=== PATIENT | female | born 1980 | race Caucasian/White ===

== ENCOUNTER 2025-04-21 12:15 | Outpatient (REF) | payer BC, SELFPAY ==
--- NOTE | ~2025-04-21 | XR_ITS ---
EXAMINATION: XR THORACIC SPINE CLINICAL INFORMATION: Z98.890 - Other specified postprocedural states COMPARISON: None available. TECHNIQUE: 2 views of the thoracic spine were obtained. FINDINGS: Bilateral Keyes rods are present extending between T3 and L2. There is mild convex right curvature of the thoracic spine. No other abnormalities are evident. XR/XR thoracic spine 3V IMPRESSION: Unremarkable aside from surgical hardware. Electronically signed by: Luigi Domínguez MD 04/21/2025 01:10 PM EDT
--- NOTE | ~2025-04-21 | XR_ITS ---
EXAMINATION: XR SHOULDER 2 OR MORE VIEWS LEFT HISTORY: M25.512 - Pain in left shoulder COMPARISON: There are no prior studies available for comparison. FINDINGS: Four views of the left shoulder are submitted. Osseous mineralization is normal. There is no fracture or dislocation. The glenohumeral joint is maintained. There is mild narrowing of the AC joint. Spinal stabilization rods are noted in place. The soft tissues are unremarkable. XR/XR shoulder LT min 2V IMPRESSION: Mild narrowing of the AC joint. Electronically signed by: Melvin Melchor MD 04/21/2025 01:06 PM EDT
--- NOTE | ~2025-04-21 | XR_ITS ---
EXAM: 5 view cervical spine x-ray TECHNIQUE: AP, lateral, AP open-mouth odontoid, and bilateral oblique view x-rays of the cervical spine INDICATION: Neck pain PRIOR: None FINDINGS: There is straightening of the cervical lordosis. There is no prevertebral soft tissue swelling. There is mild disc space narrowing and small marginal osteophytes at C2-3. C4-5 demonstrates subtle retrolisthesis with anterior osteophytes. C5-6 demonstrates calcification of the bulging Oblique views demonstrate no bony foraminal narrowing or facet arthropathy. Posterior disc annulus. The upper ends of Keyes rods are visible in the thoracic spine. XR/XR cervical spine 4V IMPRESSION: There is straightening of the expected cervical lordosis. This can be idiopathic, but can also be related to the above mentioned mild degenerative change, muscle spasm, or posterior soft tissue injury. Electronically signed by: Luigi Domínguez MD 04/21/2025 01:09 PM EDT
== END 2025-04-21 12:16 | disposition home or self-care (01) ==
LOC: HO.XRAY 12:15
PROVIDERS: PCP Internal Medicine; Visit Provider Nurse Practitioner Family
DX: M25.512 Pain in left shoulder (principal); M54.2 Cervicalgia; M41.9 Scoliosis, unspecified; M54.9 Dorsalgia, unspecified; Z98.890 Other specified postprocedural states
CPT/HCPCS: 72050; 72072; 73030

== ENCOUNTER → 2025-04-21 12:21 | Outpatient (BNV) | payer BC, SELFPAY | PROVIDERS: PCP Internal Medicine; Visit Provider Radiology Diagnostic Radiology | DX: M54.2 Cervicalgia (principal); M54.9 Dorsalgia, unspecified; M25.512 Pain in left shoulder; Z98.890 Other specified postprocedural states | CPT/HCPCS: 72050; 72072; 73030 ==